=== PATIENT | female | born 1995 | race Caucasian/White ===

== ENCOUNTER 2024-06-09 10:40 | Outpatient (CLI) | payer BC, SELFPAY | END 2024-06-09 10:41 | disposition home or self-care (01) | LOC: NFLDREF 10:42 | PROVIDERS: Visit Provider Physician Assistant | DX: R39.9 Unspecified symptoms and signs involving the genitourinary system (principal); N39.0 Urinary tract infection, site not specified | CPT/HCPCS: 87086 ==

== ENCOUNTER 2024-07-18 09:59 | Outpatient (CLI) | payer BC, SELFPAY | END 2024-07-18 10:00 | disposition home or self-care (01) | LOC: US 10:00 | PROVIDERS: Visit Provider Advanced Practice Midwife | DX: Z34.91 Encounter for supervision of normal pregnancy, unspecified, first trimester (principal); O34.81 Maternal care for other abnormalities of pelvic organs, first trimester; N83.292 Other ovarian cyst, left side; Z3A.08 8 weeks gestation of pregnancy | CPT/HCPCS: 76817; 83021; 86592; 86703; 86704; 86706; 86762; 86787; 86803; 86850; 86900; 86901; 87086; 87340 ==

== ENCOUNTER 2024-08-18 13:05 | Outpatient (CLI) | payer BC, SELFPAY | END 2024-08-18 13:06 | disposition home or self-care (01) | LOC: NFLDREF 08-21 08:16 | PROVIDERS: Visit Provider Advanced Practice Midwife | DX: Z34.91 Encounter for supervision of normal pregnancy, unspecified, first trimester (principal); Z3A.12 12 weeks gestation of pregnancy | CPT/HCPCS: 87491; 87591 ==

== ENCOUNTER 2024-10-11 15:24 | Outpatient (CLI) | payer BC, SELFPAY ==
--- NOTE | 2024-10-11 15:45 | CRLHL7_ITS ---
For Patients: As a result of the 21st Century Cures Act, medical imaging exams and procedure reports are released immediately into your electronic medical record. You may view this report before your referring provider. If you have questions, please contact your health care provider. OB ULTRASOUND SURVEY LMP: 05/23/2024. SHIRA by LMP: 02/27/2025. GA: 20 w, 1 d. INDICATION: Supervision of normal . TECHNIQUE: Real time grayscale imaging of the fetus was performed. Evaluate anatomy. Transabdominal and transvaginal. position: Breech. Cervix: Visualized. Technique: Transabdominal and Transvaginal. Length of closed cervix: 5.6 cm. Placenta/cord: Posterior. Technique: Transabdominal and Transvaginal. Placenta tip to internal OS: 1.7 cm. Umbilical Cord: 3-vessel cord. Placenta insertion: Central. Amniotic Fluid: 5.7 cm SDP (greater than/equal to: 2- less than 8 cm). SURVEY: Observed Structures. Calvarium/Spine: Cerebellum: 2.1 cm, 20 w 6 d. Cisterna Magna: 3.9 mm. Nuchal Fold: 5.4 mm. Lateral Ventricle: 6.0 mm. CSP: Yes. Midline Falx: Yes. Choroid Plexus: Yes. Spine: Yes. Abdomen: Stomach: Yes. Abd Cord Insertion: Yes. Urinary Bladder: Yes. Kidneys: Yes. Diaphragm: Yes. Face: Nose/lips: Yes. Orbital view: Yes. Profile: Yes. Limbs: Upper Extremities: Yes. Lower Extremities: Yes. Hands: Yes. Feet: Yes. Vascular: 4-Chamber Heart: Yes. LVOT: Yes. RVOT: Yes. 3VV: Yes. 3VTV: Yes. BPD: 4.8 cm. 20 w, 4 d, 67 percent. HC: 18.5 cm. 20 w, 6 d, 72 percent. AC: 16.9 cm. 21 w, 6 d, 92 percent. FL: 3.6 cm. 21 w, 3 d, 83 percent. FL/AC ratio: 21.28 percent. HC/AC ratio: 1.1. heart rate: 154 bpm. age by this US: 21 w, 1 d. SHIRA by this US: 02/20/2025. EFW: 432.53 g. Weight: 0 lbs, 15 oz. Percentile by SHIRA: >97 percent. Comment: Low-lying placenta. IMPRESSION: 1. Normal anatomic survey. 2. Sonographic gestational age 21 weeks 1 day and sonographic due date 02/20/2025. Sonographic age 1-week ahead of the clinical age. 3. Transvaginal assessment of the cervix demonstrates a cervical length of 5.6 cm. The edge of the posterior placenta is located 1.7 cm from the internal cervical os. Follow-up in the third trimester recommended. 4. Estimated weight greater than 97th percentile. Abdominal circumference 92nd percentile. Jed Lloyd M.D. Diagnostic Radiologist [email or web address] DSM/mert jj/Dictated by: Jed Lloyd MD @ 10/12/2024 9:13:00 AM (Electronically Signed)
== END 2024-10-11 15:25 | disposition home or self-care (01) ==
LOC: US 15:24
PROVIDERS: Visit Provider Advanced Practice Midwife
DX: Z34.02 Encounter for supervision of normal first pregnancy, second trimester (principal); O36.62X0 Maternal care for excessive fetal growth, second trimester, not applicable or unspecified; Z3A.21 21 weeks gestation of pregnancy
CPT/HCPCS: 76805; 76817

== ENCOUNTER 2024-12-05 11:15 | Outpatient (CLI) | payer BC, SELFPAY | END 2024-12-05 11:16 | disposition home or self-care (01) | LOC: NFLDREF 12-08 14:27 | PROVIDERS: Visit Provider Midwife | DX: Z34.93 Encounter for supervision of normal pregnancy, unspecified, third trimester (principal); Z3A.28 28 weeks gestation of pregnancy | CPT/HCPCS: 86592 ==

== ENCOUNTER 2024-12-05 11:16 | Outpatient (CLI) | payer BC, SELFPAY ==
--- NOTE | 2024-12-05 11:30 | CRLHL7_ITS ---
For Patients: As a result of the Cures Act, medical imaging exams and procedure reports are released immediately into your electronic medical record. You may view this report before your referring provider. If you have questions, please contact your health care provider. OB ULTRASOUND FOLLOW-UP/LIMITED, 12/05/2024 CLINICAL HISTORY: Low-lying placenta. COMPARISON: None. TECHNIQUE: Real time burr scale imaging of the fetus was performed. Transabdominal imaging performed. FINDINGS: LMP: 05/23/2024. SHIRA by LMP: 02/27/2025. GA: 28 weeks 0 days. Cervix: Not visualized. Positioning: Vertex. Amniotic Fluid: 6.0 cm SDP. Placenta: Technique: TA. Placenta Position: Posterior. Dopplers: Heart Rate: 149 bpm. IMPRESSION: Posterior placenta is present with the placental tip located 8.9 cm from the internal cervical os. Jed Lloyd M.D. Diagnostic Radiologist [email or web address] Transcribed: 4:53 pm DW/Dictated by: Jed Lloyd MD @ 12/05/2024 4:01:00 PM (Electronically Signed)
== END 2024-12-05 11:17 | disposition home or self-care (01) ==
LOC: US 11:16
PROVIDERS: Visit Provider Advanced Practice Midwife
DX: O44.43 Low lying placenta NOS or without hemorrhage, third trimester (principal); Z3A.28 28 weeks gestation of pregnancy; Z34.93 Encounter for supervision of normal pregnancy, unspecified, third trimester
CPT/HCPCS: 76816; 86592

== ENCOUNTER 2025-02-02 09:10 | Outpatient (CLI) | payer BC, SELFPAY | END 2025-02-02 09:11 | disposition home or self-care (01) | LOC: NFLDREF 02-06 10:33 | PROVIDERS: Visit Provider Midwife | DX: Z34.93 Encounter for supervision of normal pregnancy, unspecified, third trimester (principal) | CPT/HCPCS: 87081; 87653 ==

== ENCOUNTER 2025-02-03 13:46 | Outpatient (RCR) | payer BC, SELFPAY | END 2025-04-05 10:58 | disposition home or self-care (01) | PROVIDERS: Visit Provider Midwife | DX: M54.31 Sciatica, right side (principal); Z34.03 Encounter for supervision of normal first pregnancy, third trimester; Z51.89 Encounter for other specified aftercare | CPT/HCPCS: 97112; 97161 ==

== ENCOUNTER 2025-02-13 05:20 | Inpatient (IN) | payer BC, SELFPAY ==
[2025-02-13] VITALS (25 sets, daily range): BP systolic 102–145; BP diastolic 72–104; PULSE 70–122; RESP 16–18; TEMP 36.2–37.1; O2SAT 98–100; BMI 32.3
[2025-02-13 05:04] LABS: Amnisure Rom* POSITIVE
--- NOTE | 2025-02-13 06:10 | P.LDBA_ITS ---
Subjective History of Present Illness Date Seen: 02/13/25 Narrative: Patient is being admitted to Labor and Delivery for SROM of clear fluid at 0030. She is a 29 year old at 38 0/7 weeks gestation. Her full history and physical was dictated by Peng Hilario on 02/08/2025. Please see this for details. She reports good movement, no vaginal bleeding. No bloody show. Specific Issues/Plans / Partner: Rocky? H&P:? Sky Hilario on 02/08/25? # Low-Lying Placenta- resolved 12/05/24 ? # Varicella non-immune Consider vaccine # Simple Ovarian cyst, 3cm #Sciatica PT referral and taught stretches 02/02/25 Imaging:??? 12/05/24 ? Posterior placenta is present with the placental tip located 8.9 cm from the internal cervical os. Vaccinations:?? COVID: initial series one booster Flu: 02/22/2024? Tdap: ?12/23/2024 RSV: 01/03/25 32 week mental health: 01/03/25 Last pap:? plan for 6 wk PP visit? OB - Problem Based A/P Additional Plan (1) Pain during labor: Status: Acute (2) SROM (spontaneous rupture of membranes): Status: Acute Plan ASSESSMENT:?? 29 at 38 0/7 weeks gestation?? complicated by:?none? Labor type: Spontaneous ROM and active labor?? Category 1 FHR pattern.??? Labor complicated by: none?? GBS negative? PLAN:?? 1. Routine intrapartum cares as ordered. Continue with expectant management?? 2. Monitoring per policy, intermittent?? 3. Planning unmedicated . Desires water . Consent signed. Hep C negative. Candidate for analgesia of choice.??? 4. Patient encouraged to reposition and ambulate to promote physiologic labor and .?? 5. Anticipate ? OB Result Labs Blood Type: A (+) positive Rubella: immune RPR/VDLR: nonreactive GBS Status: negative HBsAG: negative OB Exam Physical Exam Narrative: Vitals Reviewed Constitutional:? Alert and oriented x3 HEENT:? Normocephalic, atraumatic Neck:? Supple Lungs:? Clear to auscultation bilaterally Heart:? Regular rate and rhythm, no murmur, rub or gallop Abdomen:? Soft, nontender, and gravid. Vertex by José Luis's, confirmed with bedside US Extremities:? No edema or erythema Cervix: deferred NST: on admit, prior to environmental change analyst to inermittent monitoring, baseline 130 bpm/moderate variability/accelerations present/decelerations absent/contractions q 4-5 min x 60 sec palpating moderate
[2025-02-13] MEDS: ONDANSETRON ODT 4 MG TAB PO (06:42)
[2025-02-13] MEDS: LACTATED RINGERS 1000 ML 1,000 ML 125 ML IV ×2 (10:00→10:57)
[2025-02-13] MEDS: miSOPROStoL 800 MCG/4 TABLET PR (10:15)
[2025-02-13] MEDS: LACTATED RINGERS 1000 ML 1,000 ML IV (10:19)
[2025-02-13] MEDS: TRANEXAMIC ACID 100 MG/ML INJ 1000 MG IV (10:23)
[2025-02-13 10:33] LABS: Hematocrit* 34.8 % (33.0-51.0); Hemoglobin* 11.9 gm/dL (12.0-16.0); Immature Granulocytes Pct Auto 0.2 %; Mean Corpuscular HGB Conc 34 gm/dL (32-36); Mean Corpuscular Hemoglobin 32 pg (26-34); Mean Corpuscular Volume 92 fL (80-100); RDW Coefficient of Variation % 12.2 % (11.5-15.5); Red Blood Count* 3.78 m/uL (4.00-5.20); White Blood Count* 16.18 K/uL (4.50-11.00)
[2025-02-13] MEDS: CEFAZOLIN 2 GM INJ IVP (10:39)
[2025-02-13 10:42] LABS: Immature Granulocytes Abs Auto 0.00 K/uL (0.00-0.30); Lymphocytes Absolute Auto 1.10 K/uL (0.90-2.90); Slide Review Reflex No
[2025-02-13 11:07] LABS: INR 0.97 (0.91-1.10); Prothrombin Time 13.6 Seconds
--- NOTE | 2025-02-13 11:23 | SUR.OPER ---
IVETH opened. Unable to insert during surgery.
--- NOTE | 2025-02-13 11:43 | P.ANES_ITS ---
Anesthesia Charges Start Date/Time Anesthesia Start Date: 02/13/25 Anesthesia Start Time: 10:31 Stop Date/Time Anesthesia Stop Date: 02/13/25 Anesthesia Stop Time: 11:40 Summary Emergency: RATTAN WORKER Coding CPT Codes CPT Codes: ANESTH VAGINAL PROCEDURES - 92058 ([id number]) P3 - PATIENT W/SEVERE SYS DISEASE, QK - HEARING AID ASSISTANT 2-4 CNCRNT ANES PROC, QX - RATTAN WORKER SVC W/ MD MED DIRECTION Additional Codes: Summary - Emergency: RATTAN WORKER ([id number])
--- NOTE | 2025-02-13 11:43 | W.ANESCHARGE ---
Anesthesia Charges Start Date/Time Anesthesia Start Date: 02/13/25 Anesthesia Start Time: 10:31 Stop Date/Time Anesthesia Stop Date: 02/13/25 Anesthesia Stop Time: 11:40 Summary Emergency: ASPHALT PLANT LABORER Coding CPT Codes CPT Codes: ANESTH VAGINAL PROCEDURES - 14864 ([id number]) P3 - PATIENT W/SEVERE SYS DISEASE, QK - PARI MUTUEL TICKET CASHIER 2-4 CNCRNT ANES PROC, QX - ASPHALT PLANT LABORER SVC W/ MD MED DIRECTION Additional Codes: Summary - Emergency: [employer] LABORER ([id number])
--- NOTE | 2025-02-13 11:45 | P.ANES_ITS ---
Anesthesia Charges Start Date/Time Anesthesia Start Date: 02/13/25 Anesthesia Start Time: 10:31 Stop Date/Time Anesthesia Stop Date: 02/13/25 Anesthesia Stop Time: 11:40 Summary Emergency: EDELMIRA Coding CPT Codes CPT Codes: ANESTH VAGINAL PROCEDURES - 30133 ([id number]) QK - AUTO BODY REPAIRER 2-4 CNCRNT ANES PROC, QX - SENIOR NET APPLICATION DEVELOPER SVC W/ MD MED DIRECTION, P3 - PATIENT W/SEVERE SYS DISEASE Additional Codes: Summary - Emergency: EDELMIRA ([id number])
--- NOTE | 2025-02-13 11:45 | W.ANESCHARGE ---
Anesthesia Charges Start Date/Time Anesthesia Start Date: 02/13/25 Anesthesia Start Time: 10:31 Stop Date/Time Anesthesia Stop Date: 02/13/25 Anesthesia Stop Time: 11:40 Summary Emergency: EDELMIRA Coding CPT Codes CPT Codes: ANESTH VAGINAL PROCEDURES - 15576 ([id number]) QK - TRADING ASSISTANT 2-4 CNCRNT ANES PROC, QX - HAM BONER SVC W/ MD MED DIRECTION, P3 - PATIENT W/SEVERE SYS DISEASE Additional Codes: Summary - Emergency: EDELMIRA ([id number])
[2025-02-13] MEDS: ONDANSETRON 2 MG/ML inj 4 MG IV (11:48)
--- NOTE | 2025-02-13 11:59 | SUR.PHASEI ---
Patient awake and talking. States she is a little crampy, a level 2 for pain. She stated she is nauseated and medication given per her request. Resting comfortably. Uterus firm and scant vaginal drainage.
--- NOTE | 2025-02-13 12:03 | W.PM.OBVAGDE ---
OB Procedure Vag Delivery Mother Details Mother Details: The patient is a 29 year-old, 1, Para 0, admitted on 02/13/25 at 38.0 Days gestation. : 1 Para: 1 Weeks Gestation: 38.0 Admission Date: 02/13/25 Additional Details Amniotic Membrane Status: SROM Amniotic Membrane Rupture Date: 02/13/25 Amniotic Membrane Rupture Time: 00:30 Amniotic Membrane Fluid Description: Clear Analgesia/Anesthesia Type: None Waterbirth: Yes Pitcoin: Yes (AMTSL) Labor Onset: 05:00 Pushin:54 Heart: heart tones during second stage heard by doppler at 105-115 with increases heard after many of the contractions. Delivery Details Delivery Date: 02/13/25 Delivery Time: 08:34 Route of delivery: Infant Gender: Male Infant Viability: Alive; Heart Rate Present Position at Delivery: OA Delivery Details: Patient was admitted for spontaneous labor after SROM and progressed normally. SROM noted at 0030 with clear fluid. She initially began spontaneous pushing/grunting at 0754 but had an anterior lip present. Patient was presumed complete shortly after spontaneous pushing when began pushing more actively with contractions. of a viable male at 0934 reclined in the tub. Vertex delivered OA. No nuchal cord or shoulder. Body delivered easily and without incident. Infant passed to mothers abdomen with a vigorous cry. Cord was clamped and cut at > 5 minutes. APGARS were 8 at one minute and 9 at five minutes respectively. Mouth was bulb suctioned. Intact placenta with a 3 vessel cord delivered spontaneously at 1014. Placenta was long to delivery but did slowly release with gentle traction. She was given Pitocin to help encouraged delivery of the placenta. It appeared to be intact but was noted to be heart shaped. Minimal bleeding was noted until right before delivery of the placenta. We discussed Cytotec with a small gush along with slow delivery of the placenta but it delivered before this could be administered. After the placenta there was an increase in bleeding so rectal Cytotec was administered with informed consent. There continued to be bleeding after this so gave TXA after an IV was started. She continued to have periods of stability followed by more bleeding that seemed to decrease with fundal massage and medications. However there continued to be spurts of bleeding so Dr. Storey was called to evaluate.Bleeding continued before her arrival so a manual sweep was attempted. After initiating Dr. Storey did arrive and took over on the manual sweep. It was suspected that she had a uterine inversion and with her bleeding noted to be over 1500mL a code purple. Dr. Storey assumed care in the OR. See her note for further details and laceration information. 1 Minute Interval Total Score: 8 5 Minute Interval Total Score: 9 Additional Details Shoulder Dystocia: No Placenta Delivery Time: 10:14 Placental Delivery Description: Spontaneous Delivery repair: Vicryl Procedure Done: Global Blood Loss: 2,150 (with totals from the OR) Laceration: Perineal - 2nd Degree Episiotomy Description: None Blood Loss Measurement Type: QBL Bakri Used: No Sponge/Need Count Correct: Yes Cord Vessel Description: 3 Vessels Event Summary Status: Mother and are now stable. Disposition: floor
--- NOTE | 2025-02-13 12:09 | SUR.PHASEI ---
Patient meets discharge criteria from PACU
--- NOTE | 2025-02-13 12:19 | PM.OBCN1 ---
OB - CN: HPI Date of Consult Date Seen: 02/13/25 Patient: [facility] Patient Consult date: 02/13/25 Requesting Physician: Brit Sanchez CNM Primary Care Provider: Not a Local Provider Consult Narrative Reason for consult: post hemorrhage Narrative: The patient is a 29 year old G 1 now P 1001 that was admitted to the Center on 02/13/25 for labor at 38 weeks gestation. She had an unmedicated water at 0934 today, attended by Brit Sanchez CNM. The placenta did not deliver until 1014. Was called at 1022 for management of hemorrhage that began with delivery of the placenta. Upon my arrival, the patient was in the dorsal lithotomy position on the labor bed. I was informed that QBL at that point was approximately 1500 mL, and that the patient have received tranexamic acid 1000 mg IV and misoprostol 100 mcg KS. History History 1 Elective abortions Para 0 Spontaneous abortions Hx # Term Pregnancies Ectopic pregnancies Hx # Pregnancies Multiple births Number of Living Children 0 Labs Blood type: A (+) positive Rubella: immune RPR/VDLR: nonreactive GBS status: negative HBsAG: negative OB Labs: Lab Assessment Start: 02/13/25 05:18 Freq: ONCE Status: Complete Protocol: PC.OBGBS Activity Type Activity Date Activity User E-sign Co-sign Detail Recorded Client Recorded Date Recorded By Document 02/13/25 05:37 YAKOV No Response 02/13/25 05:42 YAKOV 02/13/25 05:37 Lab Assessment GBS Status negative GBS Additional Criteria None No Treatment Needed OK Are Labs Available Yes Maternal Blood Type A Maternal RH Factor Positive Evaluate Maternal Rubella Immune Status Immune Hepatitis B Surface Antigen Negative Maternal HIV Status Negative Maternal Syphillis (RPR) Status Negative PFSH PFSH Medical History Sciatica ?M54.30 - Sciatica, unspecified side (ICD-10) Family History Mother Thyroid disease Ulcerative colitis Maternal Grandfather High blood pressure Diabetes Father Alcohol dependence 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 What is your current living situation?: I presently have a place to live Problems where you live: no known problems In the past 12 months, utilities in danger of being shut off: no In past 12 months, lack of transportation kept you from medical appts, meetings, work, or getting things needed for daily living: no In the past 12 mos, have been you worried that your food would run out before you had money to buy more?: never true In the past 12 mos, the food you bought just didn't last and you didn't have money to buy more?: never true Smoking Status: Never smoker How often does anyone, including family, friends and others, physically hurt you: never How often does anyone, including family, friends and others, insult or talk down to you: never How often does anyone, including family, friends and others, threaten you with harm: never How often does anyone, including family, friends and others, scream or curse at you: never Meds Home Medications and Allergies Home Medications ?Medication ?Instructions ?Recorded ?Confirmed ?Type [id number] 3 fatty no.1 27 1 cap PO QDAY 07/18/24 02/13/25 History mg-1 mg-300 mg capsule cholecalciferol (vitamin D3) 25 25 mcg PO QDAY 07/18/24 02/13/25 History mcg (1,000 unit) capsule doxylamine succinate 25 mg tablet 25 mg PO QHS PRN 07/18/24 02/13/25 History (Unisom (doxylamine)) pyridoxine (vitamin B6) 100 mg 100 mg PO QDAY 07/18/24 02/13/25 History tablet metronidazole 0.75 % topical gel 1 applic topical BID PRN 09/15/24 02/13/25 History omeprazole 20 mg capsule,delayed 20 mg PO QDAY #90 caps 02/08/25 02/13/25 Rx release Allergies Allergy/AdvReac Type Severity Reaction Status Date / Time Penicillins Allergy Mild Rash Verified 02/13/25 04:47 OB - H&P: Exam Physical Exam: Vital signs: Temp Pulse Resp BP Pulse Ox O2 Del Method 97.6 F 100 16 105/76 99 Room Air 02/13/25 12:07 02/13/25 12:07 02/13/25 12:07 02/13/25 12:07 02/13/25 12:07 02/13/25 12:07 Constitutional: Constitutional: no acute distress and cooperative Comments: Alert Routine Abdominal Exam: Comments: Fundus not palpable abdominally. Routine Exam: Comments: With separation of the labia, a fist-sized mass was noted to be presenting at the introitus. I immediately suspected uterine inversion. I was unable to palpate the cervix. I attempted to manually replace the uterus into the abdomen twice, and was unsuccessful. OB - Results Labs Labs: Short CBC 02/13/25 Range/Units 10:24 WBC 16.18 H (4.50-11.00) K/uL Hgb 11.9 L (12.0-16.0) gm/dL Hct 34.8 (33.0-51.0) % Plt Count 264 (140-440) K/uL OB - CN: A/P Assessment and Plan (1) hemorrhage: Status: Acute (2) Uterine inversion: Status: Acute Plan I recommended calling a code purple and taking the patient to the operating room for general anesthesia and manual replacement of the uterus. The patient gave verbal consent for the procedure.
--- NOTE | 2025-02-13 12:28 | P.PCN_ITS ---
Procedure Note Date Seen: 02/13/25 Date of procedure: 02/13/25 Will [facility] bill your pro fee for this procedure?: Yes Pre-op diagnosis: 1. Acute hemorrhage. 2. Uterine inversion. Post-op diagnosis: same Procedure: 1. Manual replacement of the uterus into the abdomen. 2. Uterine curettage under ultrasound guidance. 3. Repair of second-degree perineal laceration. Procedure Description: Due to the acute hemorrhage, code tom was paged and massive transfusion protocol initiated. I also sent out a mass communication requesting assistance from one of my OB partners. The patient gave verbal consent for transfer to the operating room for surgical management of uterine inversion. She was taken to the operating room with one IV running, and a second 16 gauge IV was placed by Anesthesia. General anesthesia then obtained without difficulty. 2 g IV Ancef were administered intravenously. The patient was prepared and draped in the normal, sterile fashion in the dorsal lithotomy position. An examination was performed. The fundus was not palpable abdominally and the cervix could not be palpated within the vagina. There was a firm mass within the vagina consistent with a grade 3 uterine inversion as it was presenting at the introitus. I attempted to manually replace the uterus, and was seemingly successful, as bleeding slowed, I was able to palpate the uterus abdominally and with further examination of the vagina, I was able to identify the cervix. Pitocin was added to the IV fluids. I followed the cervix circumferentially with ring forceps, and was able to confirm that there were no cervical lacerations. There was a second-degree perineal laceration to the right of midline, which was reapproximated in the usual, subcuticular fashion with 3-0 chromic. During the process of laceration repair, increased bleeding was again noted. On examination, there was a grade 1 uterine prolapse noted, with the fundus presenting at the level of the cervix. The IV Pitocin was discontinued. I called for ultrasound, and at this point, Dr. Ortez also arrived and scrubbed in. She was able to grasp the fundus with her fingers and manually replace the fundus into the abdomen in the proper anatomic configuration. Ultrasound was performed transabdominally, which confirmed normal uterine configuration at this time. When she removed her fingers, there was some tissue in her grasped that appeared to be retained placental fragments. I then performed a gentle sharp uterine curettage under ultrasound guidance and removed additional tissue. All tissue fragments were sent together in formalin for pathologic review. I attempted to place a Dulce, which was unsuccessful as the uterus was quite firm and contracted at this point. Bleeding was very much under control. All instruments were then removed. Sponge, lap, needle, and instrument counts reported as correct x2. The patient received 2 units packed red blood cells and 2 units FFP intraoperatively. She was given 15 mg IV Toradol at the conclusion of the procedure. She was taken to the recovery room awake and in stable condition. Anesthesia: [facility] Surgeon: Lulu Storey MD Frit Burner: Jennifer Ortez Estimated blood loss (mL): 2,150 Pathology: specimen obtained, sent to pathology Condition: stable Disposition: PACU
[2025-02-13] MEDS: ACETAMINOPHEN 500 MG TABLET 1000 MG PO (13:00)
[2025-02-13 16:32] LABS: HCO3 VBG 20 mmol/L (21-28); Ionized Calcium* 1.13 mmol/L (1.11-1.30); PCO2 VBG 32 mmHG (40-50); PO2 VBG 42.1 mmHG (25-47); pH VBG 7.401 (7.32-7.43)
[2025-02-13 16:35] LABS: Hematocrit* 30.7 % (33.0-51.0); Hemoglobin* 10.7 gm/dL (12.0-16.0); Immature Granulocytes Pct Auto 0.2 %; Mean Corpuscular HGB Conc 35 gm/dL (32-36); Mean Corpuscular Hemoglobin 32 pg (26-34); Mean Corpuscular Volume 91 fL (80-100); RDW Coefficient of Variation % 12.4 % (11.5-15.5); Red Blood Count* 3.37 m/uL (4.00-5.20); White Blood Count* 23.30 K/uL (4.50-11.00)
[2025-02-13 16:39] LABS: Immature Granulocytes Abs Auto 0.00 K/uL (0.00-0.30); Lymphocytes Absolute Auto 1.20 K/uL (0.90-2.90); Slide Review Reflex Yes
[2025-02-13 16:49] LABS: Chloride* 102 mmol/L (96-114); Potassium* 4.0 mmol/L (3.6-5.1); Sodium* 127 mmol/L (135-149)
[2025-02-13 16:52] LABS: Anion Gap 8 mEq/L (7-15); Blood Urea Nitrogen* 11 mg/dL (5-24); Carbon Dioxide* 17 mmol/L (20-32); Creatinine* 0.7 mg/dL (0.5-1.5); Est. Creatinine Clearance* 132.54; Estimated Glomerular Filt Rate 120 ml/min
[2025-02-13 16:53] LABS: Calcium* 8.3 mg/dL (8.4-10.6); Glucose* 154 mg/dL (60-115)
[2025-02-13 17:00] LABS: INR 0.94 (0.91-1.10); Prothrombin Time 13.3 Seconds
[2025-02-13 18:54] LABS: Slide Review Acceptable Review (Acceptable)
[2025-02-13] MEDS: IBUPROFEN 600 MG TABLET PO (20:19)
[2025-02-13 21:46] LABS: Blood Urea Nitrogen* 11 mg/dL (5-24); Creatinine* 0.8 mg/dL (0.5-1.5); Est. Creatinine Clearance* 115.97; Estimated Glomerular Filt Rate 102 ml/min
[2025-02-13 21:47] LABS: Alanine Aminotransferase* 25 U/L (4-35); Aspartate Amino Transferase* 80 U/L (12-35)
[2025-02-14] VITALS (21 sets, daily range): BP systolic 113–143; BP diastolic 72–117; PULSE 71–100; RESP 16–20; TEMP 36.4–37.1; O2SAT 96–100
[2025-02-14] MEDS: ACETAMINOPHEN 500 MG TABLET 1000 MG PO ×3 (00:15→18:20)
[2025-02-14] MEDS: IBUPROFEN 600 MG TABLET PO ×4 (03:58→23:16)
[2025-02-14 06:46] LABS: Hemoglobin* 7.9 gm/dL (12.0-16.0)
--- NOTE | 2025-02-14 07:37 | PM.OBPNVD1 ---
OB - PN:Subj Subjective Date Seen: 02/14/25 Narrative: Marii is a 29 year old who was admitted for SROM and active labor and proceeded to have a vaginal with a 2nd degree laceration that was repaired. PP hemorrhage with uterine inversion occurred. Dr Storey consulted attended her back to the OR. Last anne some mild BP elevations prompted a HELLP lab work up that revealed AST of 80. See other labs. The patient feels exhausted with a heavy bottom.? The pain is well controlled with current medications.? No WAHL or RUQ pain. She has no new complaints, but did note a 2 second period of spots in her vision earlier that spontaneously resolved.? Urinary output is adequate and she is voiding without difficulty.? Does not yet have a good appetite.? Has scant amount of rubra lochia.? She is ambulating well. She is and baby is sleepy. The nipple shield?is proving useful. She is pumping regularly. OB - PN: Obj Exam Physical Exam: Vital signs: Temp Pulse Resp BP Pulse Ox O2 Del Method 98.1 F 73 16 124/82 97 Room Air 02/14/25 03:48 02/14/25 03:48 02/14/25 03:48 02/14/25 03:48 02/14/25 00:37 02/14/25 03:48 Narrative: GENERAL APPEARANCE:? normal affect, alert, no distress MOOD:? appropriate ABDOMEN:? soft, non-tender the uterine fundus is 2 finger breadths below Umbilicus, Midline and is appropriate for the stage of recovery. PERINEUM:? minimal to no edema of the perineum, there is a Perineal Laceration repair that is well approximated with no abnormal erythema or discharge noted EXTREMITIES:? mild edema of BLE, + beat clonuse BLE, Left lower leg with +3/4 reflexes and right +2/4 OB - PN: Obj Data Labs Labs: Laboratory Results - last 24 hr 02/13/25 02/13/25 02/13/25 10:24 10:35 16:20 WBC 16.18 H 23.30 H RBC 3.78 L 3.37 L Hgb 11.9 L 10.7 L Hct 34.8 30.7 L MCV 92 91 MCH 32 32 MCHC 34 35 RDW Coeff of Jose 12.2 12.4 Plt Count 264 213 Neut % (Auto) 88.4 H 90.4 H Lymph % (Auto) 6.9 L 5.3 L Cherry % (Auto) 4.4 4.1 Eos % (Auto) 0.0 0.0 Baso % (Auto) 0.1 0.0 Neut # (Auto) 14.30 H 21.10 H Lymph # (Auto) 1.10 1.20 Cherry # (Auto) 0.70 1.00 H Eos # (Auto) 0.00 0.00 Baso # (Auto) 0.00 0.00 Abs Immat Gran (auto) 0.00 0.00 Imm/Tot Granulo (auto) 0.2 0.2 Diff Slide Review Acceptable Review INR 0.97 0.94 APTT 26 27 Fibrinogen 468 H 371 VBG pH 7.401 VBG pCO2 32 L VBG pO2 42.1 VBG HCO3 20 L Sodium 127 L Potassium 4.0 Chloride 102 Carbon Dioxide 17 L Anion Gap 8 BUN 11 Creatinine 0.7 Estimated Creat Clear 132.54 Estimated GFR 120 Glucose 154 H Calcium 8.3 L Ionized Calcium Clarissa 1.13 AST ALT Blood Type A Positive Antibody Screen NEGATIVE Crossmatch ([facility]) See Detail 02/13/25 02/14/25 21:25 05:50 WBC RBC Hgb 7.9 L* Hct MCV MCH MCHC RDW Coeff of Jose Plt Count Neut % (Auto) Lymph % (Auto) Cherry % (Auto) Eos % (Auto) Baso % (Auto) Neut # (Auto) Lymph # (Auto) Cherry # (Auto) Eos # (Auto) Baso # (Auto) Abs Immat Gran (auto) Imm/Tot Granulo (auto) Diff Slide Review INR APTT Fibrinogen VBG pH VBG pCO2 VBG pO2 VBG HCO3 Sodium Potassium Chloride Carbon Dioxide Anion Gap BUN 11 Creatinine 0.8 Estimated Creat Clear 115.97 Estimated GFR 102 Glucose Calcium Ionized Calcium Clarissa AST 80 H ALT 25 Blood Type Antibody Screen Crossmatch ([facility]) OB - PN: A/P Delivery Assessment and Plan (1) care and examination of lactating mother: Status: Acute (2) hemorrhage: Status: Acute (3) Uterine inversion: Status: Acute (4) Preeclampsia in period: Problem details: severe due to doubling of AST Status: Acute (5) (normal spontaneous vaginal delivery): Status: Acute (6) Preeclampsia, severe: Status: Acute Plan Comments: PP day #1 care change to diagnosis of Severe pre-e due to doubling of AST Administer another unit of PRBC Repeat labs done this morning Dr Mello consulted and transfer of care at 0810 am due to Severe diagnosis. Magnesium to be started per protocol. May see as desired Anticipate discharge 02/15/25
[2025-02-14 07:41] LABS: Alanine Aminotransferase* 22 U/L (4-35); Aspartate Amino Transferase* 82 U/L (12-35); Blood Urea Nitrogen* 13 mg/dL (5-24); Creatinine* 0.8 mg/dL (0.5-1.5); Est. Creatinine Clearance* 115.97; Estimated Glomerular Filt Rate 102 ml/min
[2025-02-14] MEDS: LACTATED RINGERS 1000 ML 1,000 ML 75 ML IV ×2 (08:36→20:54)
[2025-02-14] MEDS: MAGNESIUM IV 4 GM/100 ML PIGGYBACK IVPB (08:36)
[2025-02-14] MEDS: MAGNESIUM Infusion 40 GM/1,000 ML IV.SOLN IVPB (09:10)
[2025-02-14] MEDS: DOCUSATE SODIUM 100 MG CAPSULE PO (10:15)
[2025-02-14 13:45] LABS: Hematocrit* 25.3 % (33.0-51.0); Hemoglobin* 8.7 gm/dL (12.0-16.0); Mean Corpuscular HGB Conc 34 gm/dL (32-36); Mean Corpuscular Hemoglobin 31 pg (26-34); Mean Corpuscular Volume 91 fL (80-100); Red Blood Count* 2.78 m/uL (4.00-5.20); White Blood Count* 17.59 K/uL (4.50-11.00)
[2025-02-14 13:46] LABS: Slide Review Reflex No
[2025-02-14 14:01] LABS: Blood Urea Nitrogen* 9 mg/dL (5-24); Creatinine* 0.7 mg/dL (0.5-1.5); Est. Creatinine Clearance* 132.54; Estimated Glomerular Filt Rate 120 ml/min
[2025-02-14 14:02] LABS: Alanine Aminotransferase* 20 U/L (4-35); Aspartate Amino Transferase* 79 U/L (12-35)
[2025-02-14 18:40] LABS: Hematocrit* 29.0 % (33.0-51.0); Hemoglobin* 10.0 gm/dL (12.0-16.0); Mean Corpuscular HGB Conc 35 gm/dL (32-36); Mean Corpuscular Hemoglobin 32 pg (26-34); Mean Corpuscular Volume 92 fL (80-100); Red Blood Count* 3.15 m/uL (4.00-5.20); White Blood Count* 18.97 K/uL (4.50-11.00)
[2025-02-14 18:47] LABS: Slide Review Reflex No
[2025-02-14 18:59] LABS: Alanine Aminotransferase* 33 U/L (4-35); Aspartate Amino Transferase* 98 U/L (12-35); Blood Urea Nitrogen* 10 mg/dL (5-24); Creatinine* 0.8 mg/dL (0.5-1.5); Est. Creatinine Clearance* 115.97; Estimated Glomerular Filt Rate 102 ml/min
--- NOTE | 2025-02-14 20:38 | PM.OBCN1 ---
OB - CN: HPI Date of Consult Date Seen: 02/14/25 Patient: [facility] Patient Consult date: 02/14/25 Requesting Physician: Alma Rosa Ventura CNM Primary Care Provider: Not a Local Provider Consult Narrative Narrative: The patient is a 29 year old PPD#1 from on 02/13/25 complicated by hemorrhage due to uterine inversion. She was also subsequently diagnosed with gestational hypertension with severe features based on AST of 80. Currently, on magnesium sulfate for seizure prophylaxis. She is status post 3 units of pRBC and 2 units of FFP intraoperatively. Marii feels less fatigued after 3rd unit of pRBC. Still endorses she feels out of it. The pain is well controlled with current PO medications. She has no new complaints. She is tolerating a regular diet. She has passed flatus. She is not yet ambulating without difficulty (fatigue). Lochia is scant. Urine output is adequate. She is and pumping. Marii asks about possible causes of uterine inversion: excessive cord traction, uterine atony, PAS etc. I still do not have pathology back to give her anymore insight into possible cause. Recurrence is overall rare but possibly increased from baseline. If she has PAS, then that's another distinctive condition. Her magnesium level is subtherapeutic. This is likely dilution as her labs were drawn approximately 30 minutes after her blood transfusion was completed. Discussed with Marii that we'll see what the next mag level shows. If it continues to be subtherapeutic, I will order her another 2 g bolus. Patient is agreeable to the plan. Physical exam: General: No acute distress. Actively trying to breastfeed Psych: Alert and oriented x4, full affect but appeared very tired HEENT: Normocephalic, atraumatic. Pale conjunctival pallor bilaterally. Lungs: Unlabored breathing Neuro: No focal deficit. Mentating appropriately Pelvic exam: Deferred Postoperative/post delivery Review: - Admitted for: Spontaneous labor - Procedure (s): 1. 2. Manual replacement of the uterus into the abdomen 3. Uterine curettage under ultrasound guidance 4. Repair of second-degree perineal laceration - Closure: 3-0 chromic - Estimated blood loss: 2,150 mL - Urine output: adequate Acute blood loss anemia - Preop/pre delivery Hgb/plt: 11.9/264 - Postop/post delivery Hgb/plt: 10.0/247 s/p 3u pRBCs and 2u FFP - BP wnl - Patient continues to be fatigued but endorsed significant improvement after 3rd unit of pRBC Gestational hypertension with severe features - Based on AST of 80 on 02/13/25@ 5 - Last 3 BPs: 114/73, 126/86, 135/74 - Symptoms: Denied - Magnesium: Currently on magnesium sulfate for seizure prophylaxis - IV antihypertensives: Currently not indicated - PO antihypertensives: Currently not indicated, will continue to monitor - Pre-eclampsia labs on 02/14/25 @1330: Plt 206 Cr 0.7 ALT 20 AST 79 - Mag level 3.7, subtherapeutic. Pending repeat - UOP: 2.41cc/kg/hr Postoperative care: - Diet: Advance as tolerated - Fluid: Encourage oral intake - Activity: Encourage ambulation - Pain: Acetaminophen, Ibuprofen - DVT prophylaxis: SCDs and TEDs when not ambulating. Dispo: Patient is PPD#1. Need the following milestones: Complete 24hr of magnesium sulfate and 24hr of monitoring off magnesium suflate. Anticipate discharge PPD#3. History History 1 Elective abortions Para 1 Spontaneous abortions Hx # Term Pregnancies Ectopic pregnancies Hx # Pregnancies Multiple births Number of Living Children 0 Labs Blood type: A (+) positive Rubella: immune RPR/VDLR: nonreactive GBS status: negative HBsAG: negative OB Labs: Lab Assessment Start: 02/13/25 05:18 Freq: ONCE Status: Complete Protocol: PC.OBGBS Activity Type Activity Date Activity User E-sign Co-sign Detail Recorded Client Recorded Date Recorded By Document 02/13/25 05:37 YAKOV No Response 02/13/25 05:42 YAKOV 02/13/25 05:37 Lab Assessment GBS Status negative GBS Additional Criteria None No Treatment Needed OK Are Labs Available Yes Maternal Blood Type A Maternal RH Factor Positive Evaluate Maternal Rubella Immune Status Immune Hepatitis B Surface Antigen Negative Maternal HIV Status Negative Maternal Syphillis (RPR) Status Negative [facility] Medical History (Updated 02/14/25 @ 07:42 by Alma Rosa Ventura CNM) hemorrhage ?O72.1 - Other immediate hemorrhage (ICD-10) Preeclampsia in period ?O14.95 - Unspecified pre-eclampsia, complicating the puerperium (ICD-10) Uterine inversion ?N85.5 - Inversion of uterus (ICD-10) Sciatica ?M54.30 - Sciatica, unspecified side (ICD-10) Family History Mother Thyroid disease Ulcerative colitis Maternal Grandfather High blood pressure Diabetes Father Alcohol dependence 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 What is your current living situation?: I presently have a place to live Problems where you live: no known problems In the past 12 months, utilities in danger of being shut off: no In past 12 months, lack of transportation kept you from medical appts, meetings, work, or getting things needed for daily living: no In the past 12 mos, have been you worried that your food would run out before you had money to buy more?: never true In the past 12 mos, the food you bought just didn't last and you didn't have money to buy more?: never true Smoking Status: Never smoker How often does anyone, including family, friends and others, physically hurt you: never How often does anyone, including family, friends and others, insult or talk down to you: never How often does anyone, including family, friends and others, threaten you with harm: never How often does anyone, including family, friends and others, scream or curse at you: never Meds Home Medications and Allergies Home Medications ?Medication ?Instructions ?Recorded ?Confirmed ?Type [id number]-[id number] 3 fatty no.1 27 1 cap PO QDAY 07/18/24 02/13/25 History mg-1 mg-300 mg capsule cholecalciferol (vitamin D3) 25 25 mcg PO QDAY 07/18/24 02/13/25 History mcg (1,000 unit) capsule doxylamine succinate 25 mg tablet 25 mg PO QHS PRN 07/18/24 02/13/25 History (Unisom (doxylamine)) pyridoxine (vitamin B6) 100 mg 100 mg PO QDAY 07/18/24 02/13/25 History tablet metronidazole 0.75 % topical gel 1 applic topical BID PRN 09/15/24 02/13/25 History omeprazole 20 mg capsule,delayed 20 mg PO QDAY #90 caps 02/08/25 02/13/25 Rx release Allergies Allergy/AdvReac Type Severity Reaction Status Date / Time Penicillins Allergy Mild Rash Verified 02/13/25 04:47 OB - H&P: Exam Physical Exam: Vital signs: Temp Pulse Resp BP Pulse Ox O2 Del Method 98.1 F 89 16 135/74 99 Room Air 02/14/25 18:07 02/14/25 18:07 02/14/25 18:07 02/14/25 18:07 02/14/25 18:07 02/14/25 16:08 OB - Results Labs Labs: Short CBC 02/14/25 02/14/25 02/14/25 Range/Units 05:50 13:38 18:35 WBC 17.59 H 18.97 H (4.50-11.00) K/uL Hgb 7.9 L* 8.7 L 10.0 L (12.0-16.0) gm/dL Hct 25.3 L 29.0 L (33.0-51.0) % Plt Count 201 206 247 (140-440) K/uL BMP 02/13/25 02/14/25 02/14/25 21:25 06:30 13:38 BUN 11 13 9 Creatinine 0.8 0.8 0.7 02/14/25 18:35 BUN 10 Creatinine 0.8 Liver Function 02/13/25 02/14/25 02/14/25 Range/Units 21:25 06:30 13:38 AST 80 H 82 H 79 H (12-35) U/L ALT 25 22 20 (4-35) U/L 02/14/25 Range/Units 18:35 AST 98 H (12-35) U/L ALT 33 (4-35) U/L OB - CN: A/P Assessment and Plan (1) care and examination of lactating mother: Status: Acute (2) hemorrhage: Status: Acute (3) Uterine inversion: Status: Acute (4) Preeclampsia in period: Problem details: severe due to doubling of AST Status: Acute (5) (normal spontaneous vaginal delivery): Status: Acute (6) Preeclampsia, severe: Status: Acute
[2025-02-15 00:50] LABS: Hematocrit* 25.8 % (33.0-51.0); Hemoglobin* 8.9 gm/dL (12.0-16.0); Mean Corpuscular HGB Conc 35 gm/dL (32-36); Mean Corpuscular Hemoglobin 32 pg (26-34); Mean Corpuscular Volume 92 fL (80-100); Red Blood Count* 2.81 m/uL (4.00-5.20); White Blood Count* 15.64 K/uL (4.50-11.00)
[2025-02-15 00:56] LABS: Slide Review Reflex No
[2025-02-15 01:05] LABS: Alanine Aminotransferase* 28 U/L (4-35); Aspartate Amino Transferase* 81 U/L (12-35); Blood Urea Nitrogen* 8 mg/dL (5-24); Creatinine* 0.7 mg/dL (0.5-1.5); Est. Creatinine Clearance* 132.54; Estimated Glomerular Filt Rate 120 ml/min
[2025-02-15 02:19] VITALS: BP 123/82; PULSE 93; RESP 16; TEMP 36.5; O2SAT 97
[2025-02-15] MEDS: ACETAMINOPHEN 500 MG TABLET 1000 MG PO ×3 (02:38→17:16)
[2025-02-15] MEDS: MAGNESIUM Infusion 40 GM/1,000 ML IV.SOLN IVPB (04:33)
[2025-02-15] MEDS: IBUPROFEN 600 MG TABLET PO ×3 (05:24→21:12)
[2025-02-15 05:25] VITALS: BP 130/89; PULSE 81; RESP 14; O2SAT 98
[2025-02-15 06:35] LABS: Hematocrit* 28.5 % (33.0-51.0); Hemoglobin* 9.8 gm/dL (12.0-16.0); Mean Corpuscular HGB Conc 34 gm/dL (32-36); Mean Corpuscular Hemoglobin 32 pg (26-34); Mean Corpuscular Volume 93 fL (80-100); Red Blood Count* 3.07 m/uL (4.00-5.20); White Blood Count* 17.32 K/uL (4.50-11.00)
[2025-02-15 06:48] LABS: Alanine Aminotransferase* 31 U/L (4-35); Aspartate Amino Transferase* 94 U/L (12-35); Blood Urea Nitrogen* 8 mg/dL (5-24); Creatinine* 0.7 mg/dL (0.5-1.5); Est. Creatinine Clearance* 132.54; Estimated Glomerular Filt Rate 120 ml/min
[2025-02-15 07:55] VITALS: BP 129/84; PULSE 80; RESP 14; TEMP 36.6; O2SAT 98
[2025-02-15] MEDS: DOCUSATE SODIUM 100 MG CAPSULE PO ×2 (08:39→21:13)
[2025-02-15 09:05] LABS: Slide Review Reflex No
[2025-02-15 09:06] LABS: Slide Review Acceptable Review (Acceptable)
--- NOTE | 2025-02-15 09:16 | P.OBPN_ITS ---
OB - PN:Subj Subjective Date Seen: 02/15/25 Narrative: Marii is a 29yo seen on PPD2 from complicated by PPH (uterine inversion, retained products) requiring MTP with transfusion of 3 units pRBCs, 2 FFP. Patient developed preeclampsia with severe features in the per iod, by severe transaminitis. Ob consult was completed on 02/[address] Mello, please see this note for details. Overnight, patient has been maintained on magnesium sulfate for seizure prophylaxis. Q.6 H HELLP labs with Mag levels obtained, noted to be stable. Specifically, patient had an appropriate rise in her hemoglobin after 3rd unit of PRBCs yesterday from 8.7 > 10.0 > 8.9 to 9.8 this morning. Platelets 272, creatinine 0.7, ALT 31 and AST of 94 (from max 98 on 02/14 at 1830). Patient notes feeling off while on magnesium, excited for this to be discontinued at 24 hours at 0830 this AM. She denies any dizziness/lightheadedness at rest, but notes she can only ambulate for short distance (half the distance of hallway) before feeling fatigued, slightly lightheaded. She notes almost no vaginal bleeding. She denies headaches, vision changes or right upper quadrant pain. Robust antidiuresis ongoing, 4.4L in the last 8 hours. Patient is voiding spontaneously, passing gas. No appetite concerns, nausea/vomiting. Denies fever/chills. Blood pressures are normotensive, on no medicines at this time. Marii is bonding well with baby Kevin. She is with use of nipple shield, notes this is overall going well. OB - PN: Obj Exam Physical Exam: Vital signs: Temp Pulse Resp BP Pulse Ox O2 Del Method 97.9 F 80 14 129/84 98 Room Air 02/15/25 07:55 02/15/25 07:55 02/15/25 07:55 02/15/25 07:55 02/15/25 07:55 02/15/25 07:55 Narrative: Physical exam: General: No acute distress Psych: Alert and oriented x3, full affect Heart: Regular rate and rhythm, no murmur rub or gallop Lungs: Clear to auscultation bilaterally Abdomen: Soft, nontender and nondistended. Fundus palpates firm at 1 below umbilicus. Extremities: 1+ pitting edema bilaterally. No calf erythema/tenderness. 2+ patellar reflexes bilaterally. OB - PN: Obj Data Labs Labs: Laboratory Results - last 24 hr 02/13/25 02/14/25 02/14/25 10:35 13:38 18:35 WBC 17.59 H 18.97 H RBC 2.78 L 3.15 L Hgb 8.7 L 10.0 L Hct 25.3 L 29.0 L MCV 91 92 MCH 31 32 MCHC 34 35 Plt Count 206 247 Diff Slide Review BUN 9 10 Creatinine 0.7 0.8 Estimated Creat Clear 132.54 115.97 Estimated GFR 120 102 Magnesium 3.7 H 5.2 H* AST 79 H 98 H ALT 20 33 Blood Type A Positive Antibody Screen NEGATIVE Crossmatch (AHG) See Detail 02/15/25 02/15/25 00:45 06:18 WBC 15.64 H 17.32 H RBC 2.81 L 3.07 L Hgb 8.9 L 9.8 L Hct 25.8 L 28.5 L MCV 92 93 MCH 32 32 MCHC 35 34 Plt Count 226 272 Diff Slide Review Acceptable Review BUN 8 8 Creatinine 0.7 0.7 Estimated Creat Clear 132.54 132.54 Estimated GFR 120 120 Magnesium 5.0 H* 5.9 H* AST 81 H 94 H ALT 28 31 Blood Type Antibody Screen Crossmatch (AHG) OB - PN: A/P Delivery Assessment and Plan (1) care and examination of lactating mother: Status: Acute (2) hemorrhage: Status: Acute (3) Uterine inversion: Status: Acute (4) Preeclampsia in period: Problem details: severe due to doubling of AST Status: Acute (5) (normal spontaneous vaginal delivery): Status: Acute (6) Preeclampsia, severe: Status: Acute (7) Acute blood loss anemia: Status: Acute Plan Marii is a 29yo seen on PPD2 from complicated by PPH (uterine inversion, retained products) requiring MTP with transfusion of 3 units pRBCs, 2 FFP. Patient developed preeclampsia with severe features in the period, by severe transaminitis. Ob consult was completed on 02/[address] Mello, please see this note for details. #PreE with SF - Patient is maintained on magnesium sulfate for seizure prophylaxis, due be discontinued at 24 hours at 0830 this AM. Patient feels somewhat woozy and lightheaded on magnesium, hopeful these symptoms will improve with discontinuation. Q.6h HELLP labs have demonstrated stability, last AST was 94 (from peak 98). Asymptomatic. Normotensive on no medications. - Discontinue magnesium at 24 hours, approximately 0830 this AM - Diligent blood pressure monitoring ongoing. Patient has not required any long-acting antihypertensive regimen nor short-acting antihypertensive medications for sustained severe range blood pressures to present. If her blood pressures noted to rise (>140/90), would have a low threshold to start a long- acting antihypertensive regimen. - Repeat CBC, creatinine, AST and ALT tomorrow morning - Strict I/O assessment ongoing, robust diuresis noted of 4.4 L in the last 8 h ours - Recommend she remain inpatient for at least 24 hours after magnesium completion for blood pressure monitoring. Patient expressed understanding and is agreeable to plan. #Acute blood loss anemia - PPH of 2.1L secondary to uterine inversion and retained POC. s/p 3u pRBCs and 2 FPP. - Scant bleeding noted, fundus firm at 1 below umbilicus. - AM hemoglobin stable at 9.8. Patient does continue to note fatigue and slight lightheadedness with ambulation (when she tries to go more than length of the hallway), which could be secondary to her acute blood loss versus magnesium sulf ate affect as well. Plan to continue trials of ambulation. - Repeat CBC in the morning # Routine cares - Continue routine cares and support. consult today. - Senna p.r.n. added to bowel regimen Disposition: Inpatient overnight. Potential for discharge to home tomorrow pending blood pressure control, lab stability and milestones.
[2025-02-15 12:00] VITALS: BP 132/82; PULSE 82; RESP 16; O2SAT 97
[2025-02-15 16:58] VITALS: BP 133/77; PULSE 86; RESP 18; TEMP 36.8; O2SAT 97
[2025-02-15 21:20] VITALS: BP 127/78; PULSE 81; RESP 16; TEMP 36.8; O2SAT 97
[2025-02-16] MEDS: ACETAMINOPHEN 500 MG TABLET 1000 MG PO ×2 (01:24→08:58)
[2025-02-16] MEDS: IBUPROFEN 600 MG TABLET PO (04:16)
[2025-02-16 04:40] VITALS: BP 124/84; PULSE 83; RESP 16; TEMP 36.8; O2SAT 97
[2025-02-16] MEDS: SODIUM CHLORIDE 0.9 % (FLUSH) 10 ML SYRINGE IVF ×2 (04:45→04:47)
[2025-02-16 06:21] LABS: Hematocrit* 25.3 % (33.0-51.0); Hemoglobin* 8.5 gm/dL (12.0-16.0); Immature Granulocytes Pct Auto 1.5 %; Mean Corpuscular HGB Conc 34 gm/dL (32-36); Mean Corpuscular Hemoglobin 32 pg (26-34); Mean Corpuscular Volume 94 fL (80-100); RDW Coefficient of Variation % 13.5 % (11.5-15.5); Red Blood Count* 2.70 m/uL (4.00-5.20); White Blood Count* 12.35 K/uL (4.50-11.00)
[2025-02-16 06:32] LABS: Immature Granulocytes Abs Auto 0.20 K/uL (0.00-0.30); Lymphocytes Absolute Auto 2.90 K/uL (0.90-2.90); Slide Review Reflex No
[2025-02-16 06:37] LABS: Alanine Aminotransferase* 30 U/L (4-35); Aspartate Amino Transferase* 67 U/L (12-35); Creatinine* 0.7 mg/dL (0.5-1.5); Est. Creatinine Clearance* 132.54; Estimated Glomerular Filt Rate 120 ml/min
--- NOTE | 2025-02-16 07:30 | PM.OBDSVD1 ---
DS: Providers Provider Date Seen: 02/16/25 Date of admission: 02/13/25 05:20 Primary care physician: Not a Local Provider Admitting Clinician: Alma Rosa Ventura CNM Consults: 02/14/25 08:19 Consult to Physician [CONS] Routine Comment: Consulting Provider: Kimberly Mello Has provider been notified: Yes Attending Physician on discharge: Cherie Grace MD Date of Discharge: 02/16/25 DS: Diagnosis Discharge Diagnosis (1) Acute blood loss anemia: Status: Acute (2) Preeclampsia in period: Status: Acute Problem details: severe due to doubling of AST (3) Uterine inversion: Status: Acute (4) hemorrhage: Status: Acute (5) (normal spontaneous vaginal delivery): Status: Acute (6) care and examination of lactating mother: Status: Acute Exam Narrative: Exam Narrative: General: Pleasant, no acute distress Heart: Regular rate and rhythm, no murmur or gallop Lungs: Clear to auscultation bilaterally Abdomen: Soft, nontender, fundus well below umbilicus Lower extremities: No edema or erythema Const: Vital Signs, click to edit/add: Vital Signs - 24 hr 02/15/25 07:55 02/15/25 12:00 02/15/25 16:58 Temperature 97.9 F 98.2 F Pulse Rate [Right Pulse Oximeter] 80 82 86 Respiratory Rate 14 16 18 Blood Pressure [Le ft Arm] 129/84 132/82 133/77 Pulse Oximetry 98 97 97 Oxygen Delivery Me thod Room Air Room Air Room Air 02/15/25 21:20 02/16/25 04:40 Temperature 98.3 F 98.3 F Pulse Rate [Right Pulse Oximeter] 81 83 Respiratory Rate 16 16 Blood Pressure [Le ft Arm] 127/78 124/84 Pulse Oximetry 97 97 Oxygen Delivery Me thod Room Air Room Air OB - DS: Summary Hospital Course Hospital Course: Marii is a 29-year-old G1 now P 1-0-0-1 woman who is status post spontaneous vaginal delivery on 02/13/2025 at 38 weeks, 0 days gestation. She had a water attended by Brit Sanchez CNM. She had an immediate hemorrhage related to uterine inversion. She was taken to the operating room for general anesthesia and thereafter had manual replacement of the uterus, uterine curettage under ultrasound guidance and repair of second-degree laceration. Estimated blood loss for this and delivery was 2150 mL. Hemorrhage in subsequent anemia was managed with a total of 3 units of packed red cells and 2 units of FFP. She was given 2 g of IV Ancef. She was then diagnosed with preeclampsia with severe features on day 1, with diagnosis based on elevated blood pressures with severely elevated AST. She was given magnesium sulfate infusion. She has not required any antihypertensives. In the last 24 hours, her systolic blood pressures have ranged from 124-133, and diastolics from 77-84. Her most recent hemoglobin this morning is 8.5. Creatinine remains stable at 0.7. AST continues to trend downward, 67 this morning. ALT continues to be normal. She gave to a male , whom she is . Today, on day #3, she reports feeling much better after cessation of magnesium. She occasionally feels racing heart with activity. She reports minimal bleeding. No concerns with perineal laceration. Peripartum Data Procedures: Procedures Operation Date: 02/13/25 10:45 Actual Procedure Side Surgeon p reinverted uterine inversion, sharp curettage under ultrasound guidance, repaired 2nd degree perineal laceration Lulu Storey MD Infant Gender: Male Time Spent with Patient Time attestation: Total time spent providing and/or coordinating discharge services: Discharge Plan Discharge Disposition: Home, Self-Care Date of Admission: 02/13/25 05:20 Attending Provider on Discharge: Cherie Grace Consulting Providers: Kimberly Mello Primary Care Provider: Provider,Not a Local Condition: Stable Anticipated Discharge Date/Time: 02/16/25 07:32 Discharge Medications: New acetaminophen 500 mg Tablet 1,000 mg PO Q6H PRNQty: 0 0RF docusate sodium 100 mg Capsule 100 mg PO BID Qty: 0 0RF ibuprofen 600 mg Tablet 600 mg PO Q6H PRNQty: 0 0RF Lanolin (HPA) 100 % Cream 1 applic topical Q1H PRNQty: 0 0RF ferrous sulfate 325 mg (65 mg iron) tablet 325 mg PO Q48H Qty: 30 0RF Continued omeprazole 20 mg capsule,delayed release(DR/EC) 20 mg PO QDAY Qty: 90 0RF [id number]-omega 3 fatty no.1 27-1-300 mg capsule 1 cap PO QDAY cholecalciferol (vitamin D3) 25 mcg (1,000 unit) capsule 25 mcg PO QDAY pyridoxine (vitamin B6) 100 mg tablet 100 mg PO QDAY Discontinued metronidazole 0.75 % gel 1 applic topical BID PRN Unisom (doxylamine) 25 mg tablet 25 mg PO QHS PRN Discharge Orders: Discharge Order (Routine); Ordered 02/16/25 Ordered By: Cherie Grace Patient Education: OB High Blood Pressure DC, OB Over the Counter Medication Information, OB Vaginal/Breast Feeding Additional Instructions: Check blood pressures twice daily. Call with BP greater than or equal to 140 / 90. Follow up 5 days in clinic for BP check, then 2 and 6 weeks for visit. Activity Level: Activity as Tolerated Activity Detail: Nothing per vagina. Discharge Diet: Regular Follow Up Appointments: [facility] [Provider Group] Provider,Not a Local [Primary Care Provider, Family Practice] Forms: [employer] Info Instructions
[2025-02-16 08:55] VITALS: BP 136/81; PULSE 84; RESP 16; TEMP 36.6; O2SAT 98
[2025-02-16] MEDS: DOCUSATE SODIUM 100 MG CAPSULE PO (08:59)
== END 2025-02-16 11:50 | disposition home or self-care (01) | DRG 541 ==
LOC: OB OUT 08:04 → OB 08:04
PROVIDERS: Advanced Practice Midwife; Obstetrics & Gynecology; Admitting Provider Midwife; Visit Provider Midwife
DX: O99.892 Other specified diseases and conditions complicating childbirth (principal); M54.31 Sciatica, right side; O72.1 Other immediate postpartum hemorrhage; O71.2 Postpartum inversion of uterus; O70.1 Second degree perineal laceration during delivery; O14.15 Severe pre-eclampsia, complicating the puerperium; O90.81 Anemia of the puerperium; D62 Acute posthemorrhagic anemia; Z37.0 Single live birth; Z3A.38 38 weeks gestation of pregnancy
CPT/HCPCS: 00940; 36415; 36430; 76998; 80048; 82330; 82565; 82803; 83735; 84112; 84450; 84460; 84520; 85018; 85025; 85027; 85049; 85384; 85610; 85730; 86592; 86850; 86900; 86901; 86922; 88305; 88307; 99140; A4314; A9270; J0330; J0690; J1885; J2371; J2405; J2590; J2704; J3010; J3475; J7030; J7120; P9016; P9017

== ENCOUNTER 2025-03-29 09:56 | Outpatient (CLI) | payer BC, SELFPAY ==
[2025-03-31 20:04] LABS: HPV Source Cervical
[2025-04-05 09:38] LABS: Pap Test Digital Imaging Done
== END 2025-03-29 09:57 | disposition home or self-care (01) ==
PROVIDERS: Visit Provider Midwife
DX: Z12.4 Encounter for screening for malignant neoplasm of cervix (principal)
CPT/HCPCS: 87624; 87625; 88141; 88142; 88175